=== PATIENT | female | born 1950 | race Caucasian/White ===

== ENCOUNTER 2024-04-04 08:20 | Inpatient (IN) | payer MEDICARE, OTHER ==
[~2024-04-04] VITALS: Ht 154.9 cm; Wt 89.8 kg
[2024-04-04] MEDS: CEFAZOLIN 2 G in IV DEXTROSE 5% 100 ML IV ONE (08:00)
[~2024-04-04 08:20] MED LIST: BACITRACIN ZINC OINT 15 GM TUBE ONE; BUPIVACAINE PF 0.5% 30 ML VIAL ONE; LIDOCAINE 1%-EPI 1:100,000 20 ML VIAL ONE
[2024-04-04 08:55] LABS: BASOPHILS # (AUTO) 0.1 K/UL (0.0-0.2); BASOPHILS % (AUTO) 0.8 % (0.0-2.0); EOSINOPHILS # (AUTO) 0.1 K/uL (0.0-0.7); EOSINOPHILS % (AUTO) 1.2 % (0.0-7.0); HEMATOCRIT 43.9 % (31.2-41.9); HEMOGLOBIN 14.4 g/dL (10.9-14.3); LYMPHOCYTES # (AUTO) 1.9 K/uL (0.8-4.8); LYMPHOCYTES % (AUTO) 22.7 % (20.5-51.5); MEAN CORPUSCULAR HGB CONC 33 g/dL (32.3-35.6); MEAN CORPUSCULAR VOLUME 79.1 fL (75.5-95.3); MONOCYTES # (AUTO) 0.6 K/uL (0.1-1.30); MONOCYTES % (AUTO) 6.8 % (0.0-11.0); NEUTROPHILS # (AUTO) 5.7 K/uL (1.8-8.9); NEUTROPHILS % (AUTO) 68.5 % (38.5-71.5); PLATELET COUNT (AUTO) 210 K/uL (179-408); RED BLOOD CELL COUNT(AUTO) 5.55 MIL/uL (3.63-4.92); RED CELL DISTRIBUTION WIDTH 14.3 % (12.3-17.7); WHITE BLOOD COUNT (AUTO) 8.3 K/uL (3.8-11.8)
[2024-04-04 08:56] LABS: *BILIRUBIN,URIN NEGATIVE (NEGATIVE); *CLARITY,URINE CLEAR (CLEAR); *COLOR,URINE YELLOW (YELLOW); *KETONES,URINE NEGATIVE (NEGATIVE); *PROTEIN,URINE NEGATIVE (NEGATIVE); *UROBILINOGEN,URINE 0.2 E.U./dl (NORMAL); LEUKOCYTE ESTERASE ,URINE NEGATIVE (NEGATIVE); NITRITE, URINE NEGATIVE (NEGATIVE); UGLUCOSE NEGATIVE (NEGATIVE)
[2024-04-04 08:57] LABS: DIFFERENTIAL COMMENT 1
[2024-04-04 08:58] LABS: *BLOOD, URINE TRACE (NEGATIVE)
[2024-04-04 09:00] LABS: WBC,URINE 0-3 /HPF (0-3)
[2024-04-04 09:01] LABS: BACTERIA,URINE FEW /HPF (NONE SEEN); SQUAMOUS EPITHELIAL CELL,UR FEW /HPF (NONE SEEN)
[2024-04-04 09:23] LABS: ALANINE AMINOTRANSFERASE 19 U/L (14-59); ALBUMIN 3.7 g/dL (3.4-5.0); ALKALINE PHOSPHATASE 90 U/L (50-136); ASPARTATE AMINOTRANSFERASE 16 U/L (15-37); BILIRUBIN,TOTAL 0.6 mg/dL (0.2-1.0); CALCIUM 9.2 mg/dL (8.5-10.1); CARBON DIOXIDE 26 mmol/L (21-32); CHLORIDE 107 mmol/L (98-107); CREATININE 0.7 mg/dL (0.6-1.3); GLUCOSE 125 mg/dL (74-106); POTASSIUM 4.1 mmol/L (3.5-5.1); SODIUM SERUM 142 mmol/L (136-145); TOTAL PROTEIN, SERUM 7.6 g/dL (6.4-8.2); UREA NITROGEN, BLOOD 14 mg/dL (7-18)
[2024-04-04] MEDS ORDERED: MIDAZOLAM HCL 2 MG/2 ML VIAL ONE (11:09)
[2024-04-04] MEDS ORDERED: FENTANYL CITRATE 100 MCG/2 ML AMPUL ONE (11:09)
[2024-04-04] MEDS ORDERED: ROPIVACAINE HCL/PF 0.5% ( 5 MG/ML ) , 20 ML VIAL ONE (11:09)
[2024-04-04] MEDS ORDERED: ROCURONIUM BROMIDE 50 MG/5 ML VIAL ONE (11:10)
[2024-04-04] MEDS ORDERED: FAMOTIDINE. 20 MG/2 ML VIAL IV ONE (11:10)
[2024-04-04] MEDS ORDERED: MAGNESIUM SULFATE/D5W 0 ML ONE (11:53)
[2024-04-04] MEDS ORDERED: MAGNESIUM SULFATE/D5W 100 ML ONE (11:54)
[2024-04-04] MEDS ORDERED: PHYTONADIONE 10 MG/1 ML AMPUL ONE (12:36)
[2024-04-04] MEDS ORDERED: TRANEXAMIC ACID 1,000 MG/10 ML VIAL ONE (12:41)
[2024-04-04] MEDS ORDERED: LABETALOL HCL 100 MG/20 ML VIAL IV PRN (13:30)
[2024-04-04] MEDS ORDERED: HYDROMORPHONE 1 MG/1 ML DISP.SYRIN IV PRN ×2 (13:30→14:00)
[2024-04-04] MEDS ORDERED: ONDANSETRON 4 MG/2 ML VIAL IV PRN ×2 (13:30→14:00)
[2024-04-04] MEDS: GABAPENTIN 100 MG CAPSULE PO SCH (14:51)
[2024-04-04] MEDS: CELECOXIB 200 MG CAPSULE PO SCH (14:52)
[2024-04-04 15:29] VITALS: BP 154/62; TEMP 97.6; O2SAT 95
[2024-04-04] MEDS: IV NS 1000 ML 1,000 ML IV PRN (15:31)
[2024-04-04] MEDS: ACETAMINOPHEN 325 MG TABLET PO SCH (15:31)
[2024-04-04 15:43] LABS: BASOPHILS # (AUTO) 0.1 K/UL (0.0-0.2); BASOPHILS % (AUTO) 0.4 % (0.0-2.0); DIFFERENTIAL COMMENT 1; HEMATOCRIT 42.7 % (31.2-41.9); HEMOGLOBIN 13.8 g/dL (10.9-14.3); LYMPHOCYTES # (AUTO) 0.8 K/uL (0.8-4.8); LYMPHOCYTES % (AUTO) 5.1 % (20.5-51.5); MEAN CORPUSCULAR HEMOGLOBIN 25.6 uug (24.7-32.8); MEAN CORPUSCULAR HGB CONC 32 g/dL (32.3-35.6); MONOCYTES # (AUTO) 0.2 K/uL (0.1-1.30); MONOCYTES % (AUTO) 1.1 % (0.0-11.0); NEUTROPHILS % (AUTO) 93.4 % (38.5-71.5); PLATELET COUNT (AUTO) 214 K/uL (179-408); RED BLOOD CELL COUNT(AUTO) 5.41 MIL/uL (3.63-4.92); RED CELL DISTRIBUTION WIDTH 14.4 % (12.3-17.7); WHITE BLOOD COUNT (AUTO) 15.1 K/uL (3.8-11.8)
[2024-04-04 15:48] LABS: CALCIUM 8.6 mg/dL (8.5-10.1); CARBON DIOXIDE 25 mmol/L (21-32); CHLORIDE 104 mmol/L (98-107); CREATININE 0.7 mg/dL (0.6-1.3); GLUCOSE 177 mg/dL (74-106); POTASSIUM 3.7 mmol/L (3.5-5.1); SODIUM SERUM 141 mmol/L (136-145); UREA NITROGEN, BLOOD 11 mg/dL (7-18)
[2024-04-04] MEDS ORDERED: ASPI81TA31 PO (17:00)
[2024-04-04] MEDS ORDERED: CARV25TA2 PO (17:00)
[2024-04-04] MEDS ORDERED: CLON0.1T PO (17:00)
[2024-04-04] MEDS ORDERED: LEVO88TA5 PO (17:00)
[2024-04-04] MEDS ORDERED: DEXL60CA3 PO (17:00)
[2024-04-04] MEDS ORDERED: LOSA100T31 PO (17:00)
[2024-04-04] MEDS ORDERED: GLIP5TAB13 PO (17:00)
[2024-04-04] MEDS ORDERED: ERGO500040 PO (17:00)
[2024-04-04] MEDS: CARVEDILOL 25 MG TABLET PO SCH (17:23)
[2024-04-04 19:30] VITALS: BP 110/48; TEMP 97.4; O2SAT 95
[2024-04-04] MEDS ORDERED: PIPERACILLIN/TAZOBACTAM/D5W 50 ML IV ONE (21:50)
[2024-04-04] MEDS: PIPERACILLIN SODIUM/TAZOBACTAM 3.375 G in IV DEXTROSE 5% 50 ML IV ONE (22:17)
[2024-04-05] VITALS: BP 102/45; TEMP 98; O2SAT 94
[2024-04-05 04:00] VITALS: BP 107/44; TEMP 97.6; O2SAT 97
[2024-04-05 06:44] LABS: BASOPHILS # (AUTO) 0.1 K/UL (0.0-0.2); BASOPHILS % (AUTO) 0.5 % (0.0-2.0); EOSINOPHILS % (AUTO) 0.2 % (0.0-7.0); HEMATOCRIT 35.9 % (31.2-41.9); HEMOGLOBIN 11.9 g/dL (10.9-14.3); LYMPHOCYTES # (AUTO) 1.7 K/uL (0.8-4.8); LYMPHOCYTES % (AUTO) 15.1 % (20.5-51.5); MEAN CORPUSCULAR HEMOGLOBIN 25.8 uug (24.7-32.8); MEAN CORPUSCULAR HGB CONC 33 g/dL (32.3-35.6); MONOCYTES # (AUTO) 0.7 K/uL (0.1-1.30); MONOCYTES % (AUTO) 6.3 % (0.0-11.0); NEUTROPHILS # (AUTO) 8.7 K/uL (1.8-8.9); NEUTROPHILS % (AUTO) 77.9 % (38.5-71.5); PLATELET COUNT (AUTO) 198 K/uL (179-408); RED CELL DISTRIBUTION WIDTH 14.5 % (12.3-17.7); WHITE BLOOD COUNT (AUTO) 11.2 K/uL (3.8-11.8)
[2024-04-05] MEDS: PANTOPRAZOLE SODIUM 40 MG TABLET.DR PO SCH (06:51)
[2024-04-05] MEDS: LEVOTHYROXINE SODIUM 88 MCG TABLET PO SCH (06:51)
[2024-04-05 07:04] LABS: CALCIUM 7.2 mg/dL (8.5-10.1); CARBON DIOXIDE 24 mmol/L (21-32); CHLORIDE 110 mmol/L (98-107); CREATININE 0.6 mg/dL (0.6-1.3); GLUCOSE 104 mg/dL (74-106); MAGNESIUM 1.8 mg/dL (1.8-2.4); PHOSPHOROUS 3.5 mg/dL (2.5-4.9); POTASSIUM 3.5 mmol/L (3.5-5.1); SODIUM SERUM 144 mmol/L (136-145); UREA NITROGEN, BLOOD 11 mg/dL (7-18)
[2024-04-05 07:11] LABS: DIFFERENTIAL COMMENT 1
[2024-04-05] MEDS ORDERED: Medication Not On Formulary EA (Losartan Potassium 100 MG) PO SCH (09:00)
[2024-04-05] MEDS ORDERED: ASPIRIN 81 MG TAB.CHEW PO SCH (09:00)
[2024-04-05 09:08] VITALS: BP 129/57; TEMP 97.7; O2SAT 97
[2024-04-05] MEDS: glipiZIDE 5 MG TABLET PO SCH (10:04)
[2024-04-05] MEDS: LOSARTAN POTASSIUM 50 MG TABLET PO SCH (10:04)
[2024-04-05] MEDS: CLONIDINE HCL 0.1 MG TABLET PO SCH (10:04)
[2024-04-05 11:54] VITALS: BP 101/43; TEMP 97.6; O2SAT 94
[2024-04-10] MEDS ORDERED: ERGOCALCIFEROL 50,000 UNIT CAPSULE PO SCH (09:00)
== END 2024-04-05 13:20 | disposition home or self-care (01) | DRG 419 ==
LOC: DS 08:20 → MEDSURG3 14:35 → TELE3 15:29
PROVIDERS: ADMIT Nurse Practitioner Acute Care; ATTEND Nurse Practitioner Acute Care
PROC: 0FT44ZZ Resection of Gallbladder, Percutaneous Endoscopic Approach (ICD-10-PCS; principal; 2024-04-04)
DX: K80.10 Calculus of gallbladder with chronic cholecystitis without obstruction (principal); D64.9 Anemia, unspecified; D72.829 Elevated white blood cell count, unspecified; R01.1 Cardiac murmur, unspecified; K66.0 Peritoneal adhesions (postprocedural) (postinfection); E89.0 Postprocedural hypothyroidism; K21.9 Gastro-esophageal reflux disease without esophagitis; E66.9 Obesity, unspecified; Z68.37 Body mass index [BMI] 37.0-37.9, adult; R00.0 Tachycardia, unspecified; K57.90 Diverticulosis of intestine, part unspecified, without perforation or abscess without bleeding; I10 Essential (primary) hypertension; E78.00 Pure hypercholesterolemia, unspecified; E11.9 Type 2 diabetes mellitus without complications; R16.0 Hepatomegaly, not elsewhere classified; Z85.850 Personal history of malignant neoplasm of thyroid; Z90.49 Acquired absence of other specified parts of digestive tract; Z79.890 Hormone replacement therapy; Z79.899 Other long term (current) drug therapy; Z79.84 Long term (current) use of oral hypoglycemic drugs; Z79.82 Long term (current) use of aspirin; Z82.49 Family history of ischemic heart disease and other diseases of the circulatory system
CPT/HCPCS: 36415; 71045; 83735; 84100; 85025; 85730; A4663; G0378; J0690; J2250; J2543; J2795; J3010; J3430; J3475; J3490; J7040; J7120